=== PATIENT | male | born 1975 | race Caucasian/White ===

== ENCOUNTER 2018-03-16 15:20 | Emergency (ER) | payer OTHER ==
[~2018-03-16] VITALS: Ht 162.6 cm; Wt 72.6 kg
[2018-03-16] MEDS ORDERED: MEDROLDOSEPACK PO (16:38)
[2018-03-16] MEDS ORDERED: NORCO 5-325 TA1 EACH PO (16:38)
[2018-03-16] MEDS ORDERED: NABUMETONE 750750 M1 PO (16:38)
[2018-03-16] MEDS ORDERED: ROBAXIN 750 MG750 M1 PO (16:38)
[2018-03-16 17:17] VITALS: BP 139/88
== END 2018-03-16 17:17 | disposition short-term general hospital (02) ==
LOC: M.ERS 15:20
DX: J98.2 Interstitial emphysema (principal); M54.16 Radiculopathy, lumbar region; M51.37 Other intervertebral disc degeneration, lumbosacral region; F41.0 Panic disorder [episodic paroxysmal anxiety]; F17.210 Nicotine dependence, cigarettes, uncomplicated